=== PATIENT | male | born 1995 | race Caucasian/White ===

== ENCOUNTER 2019-07-20 14:55 | Emergency (ER) | payer OTHER, SELFPAY ==
[2019-07-20 15:01] VITALS: BP 140/83; PULSE 109; RESP 20; O2SAT 100
--- NOTE | 2019-07-20 15:03 | DI.RAD.S_ITS ---
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 COMPARISON: None. FINDINGS: Bones: Small tuft fracture of the fourth distal phalanx. Soft tissues: No suspicious soft tissue calcifications. IMPRESSION: Small fourth distal phalanx tuft fracture. Dictated by: Marci Pace M.D. on 07/20/2019 at 15:35 Approved by: Marci Pace M.D. on 07/20/2019 at 15:36
[2019-07-20] MEDS: BACITRACIN OINT 0.9 GM PCKT 1 APPLIC TOP (15:58)
[2019-07-20] MEDS: LIDO 1%/SOD BICARB 8.4% (10ML) 10 ML SYRINGE INJ (15:59)
[2019-07-20] MEDS: TET,DIPH,PERTUSS(ACELL),VAC/PF 0.5 ML SYRINGE IM (15:59)
[2019-07-20] MEDS: CEFAZOLIN 2 GM/100 ML FROZ.PIGGY IV (16:10)
--- NOTE | 2019-07-20 17:38 | ED_ITS ---
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 There are 2 lacerations in L 4th distal phalanx. Vertical linear laceration through vertically middle of anterior and posterior aspect including the nail. The 2nd smaller laceration radial aspect near the nail. The injuries had occurred at work. Right dominant hand and patient is not sure last tetanus vaccination date. Patient reports he can move his fingers and slow bleeding from the site is controlled with pressure dressing. Related Data Home Medications Medication Instructions Recorded Confirmed No Known Home Medications 07/20/19 07/20/19 Previous Rx's Medication Instructions Recorded cephalexin [Keflex] 500 mg PO Q6H 7 Days #28 cap 07/20/19 Allergies Allergy/AdvReac Type Severity Reaction Status Date / Time No Known Drug Allergies Allergy Verified 07/20/19 15:02 Review of Systems <THOM Becerra - Last Filed: 07/20/19 23:59> Review of Systems ROS Unobtainable: All systems reviewed & are unremarkable except as noted in HPI and below PFSH <THOM Becerra - Last Filed: 07/20/19 23:59> Medical History No significant past medical history (Acute) No significant past surgical history (Acute) Social History Smoking Status: Never smoker Social History Smoking Status: Never smoker Exam <THOM Becerra - Last Filed: 07/20/19 23:59> Narrative Exam Narrative: General appearance: well developed, well nourished, in no acute distress. Head: normocephalic, atraumatic, no scalp lesions, non-tender. Eye: pupil equal, round. EOMI. Nose: nares patent. Oral: mucosa moist. Neck/Thyroid: neck supple, full range of motion, no visible masses. Skin: Two laceration on L 4th distal phalanx. One with 2.5 cm, vertical in the middle of phalanx in dorsum and dumont aspect through nail. The other, 1cn near radially adjacent to nail. No suspicious rashes, lesions over visible areas. Warm and dry. Heart: no clubbing, no cyanosis, no edema. Lungs: Breathing even and unlabored. No stridor. No accessory muscles used. Chest: normal shape and expansion. Abdomen: non-obese, non-distended. Neurologic: alert and oriented. Cognitive exam, PAINTER ROUGH and PNS grossly intact on informal exam. Psych: good eye contact, normal affect. Initial Vital Signs Initial Vital Signs: Vital Signs Pulse Rate 109 H 07/20/19 15:01 Respiratory Rate 20 07/20/19 15:01 Blood Pressure 140/83 07/20/19 15:01 Pulse Oximetry 100 07/20/19 15:01 <Gisela Garcia MD - Last Filed: 07/23/19 07:11> Initial Vital Signs Initial Vital Signs: Vital Signs Pulse Rate 109 H 07/20/19 15:01 Respiratory Rate 20 07/20/19 15:01 Blood Pressure 140/83 07/20/19 15:01 Pulse Oximetry 100 07/20/19 15:01 Procedures <THOM Becerra - Last Filed: 07/20/19 23:59> Laceration Repair Laceration 1: Site: hand (4th distal phalanx, vertical through dorsum and dumont aspect ) Side (If applicable): left Size (cm): 2.5 Description: linear and clean Depth: simple, single layer Local Anesthetic: lidocaine 1% and with bicarb Amount of anesthesia used (mL): 2 (Digital block) Pre-repair: wound explored and irrigated extensively Skin layer closed with: nylon Size (cm): 4-0 Number of sutures: 5 Technique: simple, interrupted Size: 4-0 Laceration 2: Site: hand (4th distal phalanx, radial aspect side near nail) Side (If applicable): left Size (cm): 1 Description: flap Depth: simple, single layer Local Anesthetic: lidocaine 1% and with epi Pre-repair: wound explored and irrigated extensively Skin layer closed with: nylon Size (cm): 4-0 Number of sutures: 4 Technique: simple, interrupted Course <THOM Becerra - Last Filed: 07/20/19 23:59> Orders Ordered: Discontinued Medications Bacitracin (Bacitracin) 1 applic TOP NOW ONE Stop: 07/20/19 15:51 Last Admin: 07/20/19 15:58 Dose: 1 applic Documented by: HENRI Diphtheria/Tetanus/Acell Pertussis (Adacel) 0.5 ml IM .ONCE ONE Stop: 07/20/19 15:51 Last Admin: 07/20/19 15:59 Dose: 0.5 ml Documented by: HENRI Cefazolin Sodium/Dextrose (Ancef) 2 gm in 100 mls @ 200 mls/hr IV NOW ONE Stop: 07/20/19 16:19 Last Infusion: 07/20/19 17:20 Dose: 0 mls/hr Documented by: Admin: 07/20/19 16:10 Dose: 200 mls/hr Documented by: HENRI Lidocaine/Sodium Bicarbonate (Buffered Lidocaine 10 Ml Syr) 10 ml INJ NOW ONE Stop: 07/20/19 15:51 Last Admin: 07/20/19 15:59 Dose: 10 ml Documented by: HENRI Vital Signs - 8 hr 07/20/19 18:00 Pulse Rate 77 Respiratory Rate 18 Blood Pressure 140/73 Pulse Oximetry 95 <Gisela Garcia MD - Last Filed: 07/23/19 07:11> Orders Ordered: Discontinued Medications Bacitracin (Bacitracin) 1 applic TOP NOW ONE Stop: 07/20/19 15:51 Last Admin: 07/20/19 15:58 Dose: 1 applic Documented by: HENRI Diphtheria/Tetanus/Acell Pertussis (Adacel) 0.5 ml IM .ONCE ONE Stop: 07/20/19 15:51 Last Admin: 07/20/19 15:59 Dose: 0.5 ml Documented by: HENRI Cefazolin Sodium/Dextrose (Ancef) 2 gm in 100 mls @ 200 mls/hr IV NOW ONE Stop: 07/20/19 16:19 Last Infusion: 07/20/19 17:20 Dose: 0 mls/hr Documented by: Admin: 07/20/19 16:10 Dose: 200 mls/hr Documented by: HENRI Lidocaine/Sodium Bicarbonate (Buffered Lidocaine 10 Ml Syr) 10 ml INJ NOW ONE Stop: 07/20/19 15:51 Last Admin: 07/20/19 15:59 Dose: 10 ml Documented by: HENRI Vital Signs - 8 hr 07/20/19 18:00 Pulse Rate 77 Respiratory Rate 18 Blood Pressure 140/73 Pulse Oximetry 95 MDM - Wound/Laceration <Jose Flores-THOM Jolly - Last Filed: 07/20/19 23:59> Differential Diagnosis Differential diagnosis: Likely laceration and other (open fracture of finger, nail laceration) Medical Records Attestation: I reviewed the patient's medical records. 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 COMPARISON: None. FINDINGS: Bones: Small tuft fracture of the fourth distal phalanx. Soft tissues: No suspicious soft tissue calcifications. IMPRESSION: Small fourth distal phalanx tuft fracture. Dictated by: Marci Pace M.D. on 07/20/2019 at 15:35 Approved by: Marci Pace M.D. on 07/20/2019 at 15:36 [facility] Narrative Medical decision making narrative: The patient sustained a small 4th distal phalanx tuft fracture with vertical laceration through dorsum and dumont aspect of mid 4th distal phalanx and smaller laceration near radial side of nail. The patient was provided with IV antibiotic medications cefazolin 2 g and the laceration was repaired, please see procedural note. Patient tolerated the procedure well. We discussed in length of signs and symptoms for infection to monitor, home wound care/splint use. The wound was dressed after the bacitracin with bulky dressing for next 24 hours. Patient advised to use aluminum finger splint after then. Patient advised to follow with orthopedist. Patient does not have primary care physician at this time and [facility] resources contact phone number has provided. Patient discharged to home with oral antibiotic medication to complete. Return precautions discussed with patient and patient agrees with treatment plan. No further questions were expressed at this time. L&I documentation has completed. Discharge Plan Departure Patient Disposition: Home Clinical Impression: Laceration Finger fracture, left Qualifiers: Encounter type: initial encounter Finger: ring finger Fracture type: open Phalanx: distal Fracture alignment: nondisplaced Qualified Code(s): S62.665B - Nondisplaced fracture of distal phalanx of left ring finger, initial encounter for open fracture Discharge Date/Time: 07/20/19 18:00 Instructions: DI for Laceration Repair, DI for Finger Fracture Activity Restrictions/Additional Instructions: You have been diagnosed with [open fracture and laceration to left ring finger. According to the x-ray test there is a small 4th distal phalanx tuft fracture. You're laceration was repaired with sutures. We have received IV antibiotic medication today in ED. Please keep bulky dressing intact next 24 hours. After then, you could use metal finger splint that we are providing it to you to splint the area after the light dressing]. What to do: Please do not get your wound soaked in the water until suture removal. Keep your dressing intact for next 24 hrs. After then, you could remove your dressing, wash with soap and water. Pat dry with clean papertowel and dress it with antibiotic ointment. You can change dressing as needed and daily. Please monitor for signs and symptoms for infection such as increasing redness, sw elling, warmth, pain, fever, purulent discharge. If this occurs, please return to ED or follow up with your primary care physician since your wound may be gotten infected. Please follow up with your primary care provider in 2-3 days for recheck wound. Your suture should be removed [ 7-10 ] days. This can be done by your primary provider, walk-in clinic or here in ED. Please keep your wound clean, dry and intact all times. *Take your medications as directed. You to take [id number] Tylenol and/or Motrin as needed for discomfort. *Follow up with your primary care provider in 2-3 days, call for an appointment. Let them know you were seen in the ED and that we asked you to be seen in follow up. Prescriptions: New cephalexin [Keflex] 500 mg capsule 500 mg PO Q6H 7 Days Qty: 28 RF: 0 No Action No Known Home Medications RF: 0 Referrals: [facility] [Outside] (Walk in clinic) [facility] [Outside] [facility] [Outside]
[2019-07-20 18:00] VITALS: BP 140/73; PULSE 77; RESP 18; O2SAT 95
== END 2019-07-20 18:00 | disposition home or self-care (01) ==
PROVIDERS: Emergency Provider Nurse Practitioner Family
DX: S62.665B Nondisplaced fracture of distal phalanx of left ring finger, initial encounter for open fracture (principal); Z23 Encounter for immunization; Y99.0 Civilian activity done for income or pay
CPT/HCPCS: 12002; 73140; 90471; 96365; 99284; 99285; 90715; J0690

== ENCOUNTER 2022-06-15 08:44 | Emergency (ER) | payer SELFPAY ==
[2022-06-15] VITALS (7 sets, daily range): BP systolic 123–149; BP diastolic 76–93; PULSE 72–105; RESP 12–16; TEMP 36.9; O2SAT 96–99; BMI 28.0
--- NOTE | 2022-06-15 08:59 | DI.RAD.S_ITS ---
PROCEDURE: XR CHEST 1V INDICATIONS: Chest pain TECHNIQUE: One view of the chest was acquired. COMPARISON: None. FINDINGS: Surgical changes and devices: None. Lungs and pleura: Lungs are clear. No pleural effusions or pneumothorax. Mediastinum: Mediastinal contours appear normal. Heart size is normal. Bones and chest wall: No suspicious bony lesions. Overlying soft tissues appear unremarkable. IMPRESSION: No acute cardiopulmonary process demonstrated radiographically. Dictated by: Ac Sandoval M.D. on 06/15/2022 at 9:19 Approved by: Ac Sandoval M.D. on 06/15/2022 at 9:19
--- NOTE | 2022-06-15 09:00 | ED_ITS ---
HPI - Chest Pain General Chief Complaint: Chest Pain Stated Complaint: chest pain heart palpitations Time Seen by Provider: 06/15/22 08:50 Source: patient Mode of arrival: Ambulatory Limitations: no limitations History of Present Illness HPI narrative: This 26-year-old young man drinks about a six-pack of beer daily and has not had any for about 48 hours now. He woke up this morning with some tightness in his upper chest and a feeling as if his heart is beating with great force but not particularly fast. He denies any recent illness with fever, cough, nausea, vomiting, diarrhea or other URI symptoms. He denies any other medical condition. He says he has never taken a prescription medication nor has he ever had surgery or hospitalization. He says he has felt a little bit like this before when discontinuing drinking but never with the chest pressure. Related Data Previous Rx's Medication Instructions Recorded acamprosate 333 mg tablet,delayed 666 mg PO Q8H #30 tabs 06/15/22 release chlordiazepoxide HCl 25 mg capsule 25 mg PO BID #6 caps 06/15/22 Allergies Allergy/AdvReac Type Severity Reaction Status Date / Time No Known Drug Allergies Allergy Verified 06/15/22 08:56 Review of Systems Review of Systems Narrative: Complete review of systems is negative other than as noted above Patient History Medical History (Updated 06/15/22 @ 11:11 by Tano Brown MD) No significant past medical history Surgical History No significant past surgical history Social History Smoking Status: Never smoker Smoking Status: Never smoker alcohol intake frequency: 3 or more drinks per day Exam Narrative Exam Narrative: GENERAL: Alert, cooperative and in no distress. HEAD: Atraumatic. Normocephalic. EYES: Sclera are clear without icterus. Extraocular movements are full. ENT: No rhinorrhea. Oropharynx is moist. Mouth exam is benign. NECK: Supple. Full range of motion. CARDIOVASCULAR: Normal rate and rhythm without murmur gallop or rub. RESPIRATORY: Clear to auscultation. Breath sounds equal bilaterally. No wheezes, rales, or rhonchi. GASTROINTESTINAL: Abdomen soft, non-tender, nondistended. EXTREMITIES: No edema, full range of motion. No obvious trauma. BACK: Normal inspection, no CVA tenderness. NEURO: Nonfocal examination, normal speech, normal gait. SKIN: No rash or erythema of visible areas PSYCH: Normally oriented. Normal range of affect. Appropriate behavior Initial Vital Signs Initial Vital Signs: Vital Signs Temperature 98.5 F 06/15/22 08:50 Pulse Rate 94 H 06/15/22 08:50 Respiratory Rate 15 06/15/22 08:50 Blood Pressure 149/92 H 06/15/22 08:50 Pulse Oximetry 99 06/15/22 08:50 Oxygen Delivery Method 06/15/22 08:50 Course Orders Ordered: ED Orders 06/15/22 08:59 XR chest 1V Stat EKG-12 Lead Stat 06/15/22 09:06 Complete Blood Count AUTO DIFF Stat Comprehensive Metabolic Panel Stat Lipase Stat Magnesium Stat Troponin & CK Cardiac Panel Stat Discontinued Medications Sodium Chloride (Normal Saline 0.9%) 1,000 mls @ 1,000 mls/hr IV BOLUS ONE Stop: 06/15/22 09:59 Last Admin: 06/15/22 09:16 Dose: 1,000 mls/hr Documented By: CATHY Lorazepam (Lorazepam 1 Mg Tablet) 1 mg PO NOW ONE Stop: 06/15/22 09:01 Last Admin: 06/15/22 09:15 Dose: 1 mg Documented By: CATHY Reevaluation(s) Reevaluation #1: 1103, patient says he is feeling dramatically improved. Chest symptoms have resolved. Vital Signs Vital signs: Vital Signs - 8 hr 06/15/22 08:50 Temperature 98.5 F Pulse Rate 94 H Respiratory Rate 15 Blood Pressure 149/92 H Pulse Oximetry 99 Oxygen Delivery Method Room Air MDM - Chest Pain Medical Records Data Medical records narrative: Feels well now. I think this is all attributable to alcohol withdrawal. I do not suspect an acute pulmonary or cardiac condition though his EKG is mildly abnormal. I will recommend outpatient follow-up for this. We had a lengthy discussion about addiction disease. I recommend acamprosate along with acute Librium for withdrawal over the next couple of days. Lab Data Result diagrams: 06/15/22 09:06 06/15/22 09:06 Labs: Lab Results 07/22/22 07/22/22 07/22/22 Range/Units 09:06 09:06 09:06 WBC 8.0 Cancelled (4.5-11.0) X10^3/uL RBC 4.82 Cancelled (4.5-5.9) X10^6/uL Hgb 15.8 Cancelled (13.5-17.5) g/dL Hct 44.3 Cancelled (41-53) % MCV 91.9 Cancelled (80-100) fL MCH 32.9 Cancelled (26-34) PG MCHC 35.8 Cancelled (30-36) % RDW 12.8 Cancelled (11.6-14.8) % Plt Count 185 Cancelled (150-400) X10^3/uL Neut % (Auto) 81.8 H Cancelled (50-75) % Lymph % (Auto) 10.1 L Cancelled (25-40) % [place] % (Auto) 7.4 Cancelled (3-14) % Eos % (Auto) 0.2 L Cancelled (2-4) % Baso % (Auto) 0.5 Cancelled (0-2) % Neut # (Auto) 6500 Cancelled (4724-9531) /uL Lymph # (Auto) 800 L Cancelled (8564-2728) /uL [place] # (Auto) 600 Cancelled (0-900) /uL Eos # (Auto) 0 Cancelled (0-450) /uL Baso # (Auto) 0 Cancelled (0-100) /uL RBC Morphology See below Sodium 136 L (137-145) mmol/L Potassium 3.5 (3.4-5.1) mmol/L Chloride 102 (98-107) mmol/L Carbon Dioxide 23 (22-32) mmol/L BUN 9 (9-20) mg/dL Creatinine 0.99 (0.66-1.25) mg/dL Estimated GFR > 60 (>60) mL/min BUN/Creatinine Ratio 9.1 (6-22) Glucose 136 H (70-100) mg/dL Calcium 9.4 (8.4-10.2) mg/dL Magnesium 1.9 (1.6-2.3) mg/dL Total Bilirubin 0.9 (0.2-1.3) mg/dL AST 27 (17-59) IU/L ALT 25 (<50) IU/L Alkaline Phosphatase 44 (38-126) U/L Total Creatine Kinase 66 (55-170) U/L CK-MB (CK-2) TNP CK-MB (CK-2) Rel Index TNP Troponin I < 0.012 (0.01-0.034) ng/mL Total Protein 8.0 (6.3-8.2) g/dL Albumin 5.2 H (3.5-5.0) g/dL Globulin 2.8 (1.7-4.1) g/dL Albumin/Globulin Ratio 1.9 (1.0-2.8) Lipase 50 (23-300) U/L 06/15/22 Range/Units 09:06 WBC (4.5-11.0) X10^3/uL RBC (4.5-5.9) X10^6/uL Hgb (13.5-17.5) g/dL Hct (41-53) % MCV (80-100) fL MCH (26-34) PG MCHC (30-36) % RDW (11.6-14.8) % Plt Count (150-400) X10^3/uL Neut % (Auto) (50-75) % Lymph % (Auto) (25-40) % [place] % (Auto) (3-14) % Eos % (Auto) (2-4) % Baso % (Auto) (0-2) % Neut # (Auto) (5907-1383) /uL Lymph # (Auto) (0898-4402) /uL [place] # (Auto) (0-900) /uL Eos # (Auto) (0-450) /uL Baso # (Auto) (0-100) /uL RBC Morphology Sodium Cancelled (137-145) mmol/L Potassium Cancelled (3.4-5.1) mmol/L Chloride Cancelled (98-107) mmol/L Carbon Dioxide Cancelled (22-32) mmol/L BUN Cancelled (9-20) mg/dL Creatinine Cancelled (0.66-1.25) mg/dL Estimated GFR Cancelled (>60) mL/min BUN/Creatinine Ratio Cancelled (6-22) Glucose Cancelled (70-100) mg/dL Calcium Cancelled (8.4-10.2) mg/dL Magnesium (1.6-2.3) mg/dL Total Bilirubin Cancelled (0.2-1.3) mg/dL AST Cancelled (17-59) IU/L ALT Cancelled (<50) IU/L Alkaline Phosphatase Cancelled (38-126) U/L Total Creatine Kinase Cancelled (55-170) U/L CK-MB (CK-2) Cancelled CK-MB (CK-2) Rel Index Cancelled Troponin I Cancelled (0.01-0.034) ng/mL Total Protein Cancelled (6.3-8.2) g/dL Albumin Cancelled (3.5-5.0) g/dL Globulin Cancelled (1.7-4.1) g/dL Albumin/Globulin Ratio Cancelled (1.0-2.8) Lipase (23-300) U/L Imaging Data Chest x-ray: Radiologist's Impression: IMPRESSION:? No acute cardiopulmonary process demonstrated radiographically. ? ? Dictated by: Ac Sandoval M.D. on 06/15/2022 at 9:19 ? ? Approved by: Ac Sandoval M.D. on 06/15/2022 at 9:19 ? ECG Data Interpretation: EKG obtained at 9:00 a.m. shows sinus rhythm with no acute ST or T-wave changes. Discharge Plan Departure Patient Disposition: Home Clinical Impression: Alcohol withdrawal, Chest pain Instructions: Drug and Alcohol Withdrawal Activity Restrictions/Additional Instructions: I think her symptoms are attributable to alcohol withdrawal. I think it is great the you have recognized that this is a problem for you and that you should be doing something about it. I recommend that you call [facility] to schedule a follow-up appointment next week. Phone #[phone]. For now recommend delivery in 25 mg 3 times a day today and then 2 times a day on Saturday and then we in the evening on Saturday 1 dose. Do not combine it chlordiazepoxide (Librium) with alcohol this could be life-threatening. Additionally, starting Saturday I recommended acamprosate 3 times a day. Return to the ER if you have new or worsening chest pain. Prescriptions: New chlordiazepoxide HCl 25 mg capsule 25 mg PO BID Qty: 6 0RF Rx Instructions: Take 1 tablet every 8 hours for 3 doses then to 1 tablet every 12 hours for 2 doses then 1 tablet acamprosate 333 mg tablet,delayed release (DR/EC) 666 mg PO Q8H Qty: 30 0RF Rx Instructions: Start after 5 days of alcohol abstinence
[2022-06-15] MEDS: LORazepam 1 MG TABLET PO (09:15)
[2022-06-15] MEDS: SODIUM CHLORIDE 0.9% 1,000 ML 1000 ML IV (09:16)
[2022-06-15 09:34] LABS: Alanine Aminotransferase 25 IU/L (<50); Albumin 5.2 g/dL (3.5-5.0); Albumin Globulin Ratio 1.9 (1.0-2.8); Alkaline Phosphatase 44 U/L (38-126); Aspartate Aminotransferase 27 IU/L (17-59); BUN Creatinine Ratio 9.1 (6-22); Bilirubin Total 0.9 mg/dL (0.2-1.3); Blood Urea Nitrogen 9 mg/dL (9-20); Calcium 9.4 mg/dL (8.4-10.2); Carbon Dioxide 23 mmol/L (22-32); Chloride 102 mmol/L (98-107); Creatine Kinase 66 U/L (55-170); Estimated Glomerular Filt Rate > 60 mL/min (>60); Globulin 2.8 g/dL (1.7-4.1); Glucose 136 mg/dL (70-100); HEMOLYSIS < 15 (0-50); Lipase 50 U/L (23-300); Magnesium 1.9 mg/dL (1.6-2.3); Potassium 3.5 mmol/L (3.4-5.1); Sodium 136 mmol/L (137-145)
[2022-06-15 09:44] LABS: Basophils Absolute Auto 0 /uL (0-100); Basophils Percent Auto 0.5 % (0-2); Eosinophils Absolute Auto 0 /uL (0-450); Eosinophils Percent Auto 0.2 % (2-4); Hematocrit 44.3 % (41-53); Hemoglobin 15.8 g/dL (13.5-17.5); Lymphocytes Absolute Auto 800 /uL (1100-4500); Lymphocytes Percent Auto 10.1 % (25-40); Mean Corpuscular HGB Conc 35.8 % (30-36); Mean Corpuscular Hemoglobin 32.9 PG (26-34); Mean Corpuscular Volume 91.9 fL (80-100); Monocytes Absolute Auto 600 /uL (0-900); Monocytes Percent Auto 7.4 % (3-14); Neutrophils Absolute Auto 6500 /uL (1500-7000); Neutrophils Percent Auto 81.8 % (50-75); Platelet Count 185 X10^3/uL (150-400); Red Blood Cell Count 4.82 X10^6/uL (4.5-5.9); Red Cell Distribution Width 12.8 % (11.6-14.8)
[2022-06-15 09:45] LABS: Troponin I < 0.012 ng/mL (0.01-0.034)
[2022-06-15 10:10] LABS: Add Manual Diff / Slide Review SLIDE REVIEW
--- NOTE | 2022-06-15 10:51 | PC.NURSE ---
Pt feeling better after receiving the Ativan
== END 2022-06-15 11:25 | disposition home or self-care (01) ==
PROVIDERS: Emergency Provider Family Medicine Addiction Medicine
DX: F10.139 Alcohol abuse with withdrawal, unspecified (principal); R07.9 Chest pain, unspecified
CPT/HCPCS: 36415; 71045; 80053; 82550; 83690; 83735; 84484; 85025; 93005; 93010; 96360; 96361; 99284

== ENCOUNTER 2022-08-06 08:21 | Emergency (ER) | payer SELFPAY ==
[2022-08-06] VITALS (8 sets, daily range): BP systolic 128–162; BP diastolic 71–91; PULSE 76–108; RESP 11–20; TEMP 37.1; O2SAT 97–100; BMI 26.7
--- NOTE | 2022-08-06 08:23 | DI.RAD.S_ITS ---
PROCEDURE: XR CHEST 1V INDICATIONS: chest pain TECHNIQUE: One view of the chest was acquired. COMPARISON: [facility], CR, XR CHEST 1V, 06/15/2022, 9:05. FINDINGS: Surgical changes and devices: None. Lungs and pleura: Lungs are clear. No pleural effusions or pneumothorax. Mediastinum: Mediastinal contours appear normal. Heart size is normal. Bones and chest wall: No suspicious bony lesions. Overlying soft tissues appear unremarkable. IMPRESSION: No acute process. Dictated by: Albino Mendoza M.D. on 08/06/2022 at 8:51 Approved by: Albino Mendoza M.D. on 08/06/2022 at 8:52
[2022-08-06 09:03] LABS: Add Manual Diff / Slide Review NO; Basophils Absolute Auto 0 /uL (0-100); Basophils Percent Auto 0.4 % (0-2); Eosinophils Absolute Auto 100 /uL (0-450); Eosinophils Percent Auto 0.8 % (2-4); Hematocrit 45.6 % (41-53); Hemoglobin 16.3 g/dL (13.5-17.5); Lymphocytes Absolute Auto 1600 /uL (1100-4500); Lymphocytes Percent Auto 20.6 % (25-40); Mean Corpuscular HGB Conc 35.8 % (30-36); Mean Corpuscular Hemoglobin 32.3 PG (26-34); Mean Corpuscular Volume 90.2 fL (80-100); Monocytes Absolute Auto 600 /uL (0-900); Monocytes Percent Auto 7.4 % (3-14); Neutrophils Absolute Auto 5500 /uL (1500-7000); Neutrophils Percent Auto 70.8 % (50-75); Platelet Count 222 X10^3/uL (150-400); Red Blood Cell Count 5.06 X10^6/uL (4.5-5.9); Red Cell Distribution Width 12.6 % (11.6-14.8); White Blood Cell Count 7.8 X10^3/uL (4.5-11.0)
[2022-08-06 09:05] LABS: Alanine Aminotransferase 34 IU/L (<50); Albumin 5.3 g/dL (3.5-5.0); Albumin Globulin Ratio 1.3 (1.0-2.8); Alkaline Phosphatase 50 U/L (38-126); Aspartate Aminotransferase 21 IU/L (17-59); Bilirubin Total 1.1 mg/dL (0.2-1.3); Blood Urea Nitrogen 13 mg/dL (9-20); Calcium 9.6 mg/dL (8.4-10.2); Carbon Dioxide 24 mmol/L (22-32); Chloride 100 mmol/L (98-107); Creatine Kinase 34 U/L (55-170); Estimated Glomerular Filt Rate > 60 mL/min (>60); Glucose 115 mg/dL (70-100); HEMOLYSIS < 15 (0-50); Lipase 49 U/L (23-300); Magnesium 1.9 mg/dL (1.6-2.3); Potassium 3.5 mmol/L (3.4-5.1); Sodium 141 mmol/L (137-145); Total Protein 9.3 g/dL (6.3-8.2)
[2022-08-06 09:15] LABS: Troponin I < 0.012 ng/mL (0.01-0.034)
--- NOTE | 2022-08-06 09:39 | ED_ITS ---
HPI - Chest Pain General Chief Complaint: Chest Pain Stated Complaint: elevated heart rate 3 days dull chest pain Time Seen by Provider: 08/06/22 09:39 Source: patient Mode of arrival: Family Vehicle Limitations: no limitations History of Present Illness HPI narrative: This is a 26-year-old male with history of insomnia and alcohol abuse who has been sober for approximately 3 months months. Patient states for the past 3 days he is noticed heart rate has been fast intermittently, he is had some issues with sleep which he states is longstanding. Last night he was up had substernal chest discomfort that has been a little bit to the left side. He is felt a little dizzy he felt like his heart rate was a little fast. Denies any radiation of chest pain, no syncope. No shortness of breath, no diaphoresis [place] his feet and palms felt cold and sweaty. No nausea or vomiting last 24 hours but had some vomiting 2 days ago. No cold, cough or congestive symptoms. Patient states no swelling in his extremities. He states heart rate will feel little bit fast he checked his pulse he got mostly 100s but occasional 140s. He denies any other past medical issues. Denies any surgeries. No known drug allergies. He uses nicotine in a pouch form, quit drinking alcohol 3 months ago. Patient states feels a little bit similar when he was going through withdrawal from alcohol but states he has been alcohol free. Patient states uses marijuana maybe once a week but not persistently denies any other IV drugs. Notes dad had cardiac issues starting in his 50s he is not entirely sure but states he is had open heart surgery, pacemaker and has atrial fibrillation. States status now 69. He is 2 sisters which he states are healthy. Does not currently have a primary care physician. He notes that he did have a sleep study when he was younger for insomnia and has tried multiple medications for his insomnia [id number] and prescription in the past. No other known embolic or pulmonary history in his family. Related Data Previous Rx's Medication Instructions Recorded acamprosate 333 mg tablet,delayed 666 mg PO Q8H #30 tabs 06/15/22 release chlordiazepoxide HCl 25 mg capsule 25 mg PO BID #6 caps 06/15/22 Allergies Allergy/AdvReac Type Severity Reaction Status Date / Time No Known Drug Allergies Allergy Verified 06/15/22 08:56 Review of Systems Review of Systems ROS Unobtainable: All systems reviewed & are unremarkable except as noted in HPI and below Patient History Medical History (Updated 08/06/22 @ 09:58 by Blanca Tejeda DO) No significant past medical history Surgical History No significant past surgical history Social History Smoking Status: Never smoker Smoking Status: Never smoker alcohol intake frequency: a few times a week Substance Use Type: does not use Exam Narrative Exam Narrative: GENERAL: Alert and oriented x three, male in mild distress. No diaphoresis. HEENT: Head normocephalic, atraumatic, EOMI, pupils reactive, face symmetric, m oist mucous membranes NECK: Supple, full range of motion CARDIOVASCULAR: Regular rate and rhythm without murmurs, rubs or gallops. No JVD no swelling bilateral lower extremities. RESPIRATORY: Breath sounds equal bilaterally, no wheezes rales or rhonchi. ABDOMEN: Soft, nontender. Normoactive bowel sounds all 4 quadrants. No guarding or rebound, rigidity, no mass, no pulsatile mass or bruit. : No CVA tenderness EXTREMITIES: Normal range of motion, no clubbing or edema. Neurovascularly intact NEUROLOGICAL: Cranial nerves II through XII grossly intact. Moving all extremities SKIN: Warm, dry, no petechiae, no rashes or lesions. Initial Vital Signs Initial Vital Signs: Vital Signs Pulse Rate 108 H 08/06/22 08:28 Respiratory Rate 15 08/06/22 08:28 Pulse Oximetry 100 08/06/22 08:28 Scores HEART Score Heart Score history: Slightly Suspicious Heart Score EKG: Normal Heart Score Age: < 45 years old Heart Score risk factors: 1-2 risk factors Heart Score troponin: < or = to normal limit Heart Score Total: 1 PERC Score Age greater than or equal to 50 years: No Heart rate greater than or equal to 100 bpm: Yes Room Air O2 Sat less than 95%: No Unilateral leg swelling: No Recent trauma or surgery: No Hemoptysis: No Prior PE or DVT: No Hormone Use: No Total PERC Score: 1 Course Orders Ordered: ED Orders 08/06/22 08:23 XR chest 1V Stat EKG-12 Lead Stat 08/06/22 08:24 D Dimer Stat 08/06/22 08:34 Complete Blood Count AUTO DIFF Stat Comprehensive Metabolic Panel Stat Lipase Stat Magnesium Stat Troponin & CK Cardiac Panel Stat 08/06/22 09:39 Trop I [Troponin I] Stat 08/06/22 10:20 COVID19 -Nasal RAPID/Pre-Proc Stat 08/06/22 10:30 Trop I [Troponin I] Stat 08/06/22 10:38 EKG-12 Lead Routine Vital Signs Vital signs: Vital Signs - 8 hr 08/06/22 08:41 08/06/22 08:28 08/06/22 08:30 Temperature 98.8 F Pulse Rate 99 H 108 H Respiratory Rate 20 15 Blood Pressure 162/91 H 162/90 H Pulse Oximetry 100 100 Oxygen Delivery Method Room Air 08/06/22 08:30 08/06/22 09:00 08/06/22 09:02 Temperature Pulse Rate 99 H 87 Respiratory Rate 14 11 L Blood Pressure 133/81 Pulse Oximetry 98 Oxygen Delivery Method 08/06/22 09:02 08/06/22 09:30 08/06/22 10:00 Temperature Pulse Rate 82 83 76 Respiratory Rate 12 16 16 Blood Pressure 131/72 128/71 Pulse Oximetry 97 99 97 Oxygen Delivery Method Room Air Room Air MDM - Chest Pain Lab Data Result diagrams: 08/06/22 08:34 08/06/22 08:34 Labs: Lab Results 08/06/22 08/06/22 08/06/22 Range/Units 08:24 08:34 08:34 WBC 7.8 (4.5-11.0) X10^3/uL RBC 5.06 (4.5-5.9) X10^6/uL Hgb 16.3 (13.5-17.5) g/dL Hct 45.6 (41-53) % MCV 90.2 (80-100) fL MCH 32.3 (26-34) PG MCHC 35.8 (30-36) % RDW 12.6 (11.6-14.8) % Plt Count 222 (150-400) X10^3/uL Neut % (Auto) 70.8 (50-75) % Lymph % (Auto) 20.6 L (25-40) % [place] % (Auto) 7.4 (3-14) % Eos % (Auto) 0.8 L (2-4) % Baso % (Auto) 0.4 (0-2) % Neut # (Auto) 5500 (1136-6109) /uL Lymph # (Auto) 1600 (6315-5970) /uL [place] # (Auto) 600 (0-900) /uL Eos # (Auto) 100 (0-450) /uL Baso # (Auto) 0 (0-100) /uL D-Dimer < 215 (<500) ng/ml Sodium 141 (137-145) mmol/L Potassium 3.5 (3.4-5.1) mmol/L Chloride 100 (98-107) mmol/L Carbon Dioxide 24 (22-32) mmol/L BUN 13 (9-20) mg/dL Creatinine 1.00 (0.66-1.25) mg/dL Estimated GFR > 60 (>60) mL/min BUN/Creatinine Ratio 13.0 (6-22) Glucose 115 H (70-100) mg/dL Calcium 9.6 (8.4-10.2) mg/dL Magnesium 1.9 (1.6-2.3) mg/dL Total Bilirubin 1.1 (0.2-1.3) mg/dL AST 21 (17-59) IU/L ALT 34 (<50) IU/L Alkaline Phosphatase 50 (38-126) U/L Total Creatine Kinase 34 L (55-170) U/L CK-MB (CK-2) TNP CK-MB (CK-2) Rel Index TNP Troponin I < 0.012 (0.01-0.034) ng/mL Total Protein 9.3 H (6.3-8.2) g/dL Albumin 5.3 H (3.5-5.0) g/dL Globulin 4.0 (1.7-4.1) g/dL Albumin/Globulin Ratio 1.3 (1.0-2.8) Lipase 49 (23-300) U/L SARS-CoV-2 (PCR) (Negative) 08/06/22 08/06/22 Range/Units 10:20 10:30 WBC (4.5-11.0) X10^3/uL RBC (4.5-5.9) X10^6/uL Hgb (13.5-17.5) g/dL Hct (41-53) % MCV (80-100) fL MCH (26-34) PG MCHC (30-36) % RDW (11.6-14.8) % Plt Count (150-400) X10^3/uL Neut % (Auto) (50-75) % Lymph % (Auto) (25-40) % [place] % (Auto) (3-14) % Eos % (Auto) (2-4) % Baso % (Auto) (0-2) % Neut # (Auto) (4037-3747) /uL Lymph # (Auto) (6771-7383) /uL [place] # (Auto) (0-900) /uL Eos # (Auto) (0-450) /uL Baso # (Auto) (0-100) /uL D-Dimer (<500) ng/ml Sodium (137-145) mmol/L Potassium (3.4-5.1) mmol/L Chloride (98-107) mmol/L Carbon Dioxide (22-32) mmol/L BUN (9-20) mg/dL Creatinine (0.66-1.25) mg/dL Estimated GFR (>60) mL/min BUN/Creatinine Ratio (6-22) Glucose (70-100) mg/dL Calcium (8.4-10.2) mg/dL Magnesium (1.6-2.3) mg/dL Total Bilirubin (0.2-1.3) mg/dL AST (17-59) IU/L ALT (<50) IU/L Alkaline Phosphatase (38-126) U/L Total Creatine Kinase (55-170) U/L CK-MB (CK-2) CK-MB (CK-2) Rel Index Troponin I < 0.012 (0.01-0.034) ng/mL Total Protein (6.3-8.2) g/dL Albumin (3.5-5.0) g/dL Globulin (1.7-4.1) g/dL Albumin/Globulin Ratio (1.0-2.8) Lipase (23-300) U/L SARS-CoV-2 (PCR) Negative (Negative) Imaging Data Chest x-ray: Radiologist's Impression: [address] [address] XRay Report Signed Patient: RubinJin le MR#: [id number] : 1995 Acct:[id number] Age/Sex: 26 / M Date of Service: 08/06/22 Loc: ED Accession Number: [id number] ?? Procedure: XR chest 1V Ordering Provider: Blanca Tejeda D.O. PROCEDURE:? XR CHEST 1V ? INDICATIONS:? chest pain ? TECHNIQUE:? One view of the chest was acquired.? ? COMPARISON:? [facility], CR, XR CHEST 1V, 06/15/2022, 9:05. ? FINDINGS:? ? Surgical changes and devices:? None.? ? Lungs and pleura:? Lungs are clear.? No pleural effusions or pneumothorax.? ? Mediastinum:? Mediastinal contours appear normal.? Heart size is normal.? ? Bones and chest wall:? No suspicious bony lesions.? Overlying soft tissues appear unremarkable.? ? IMPRESSION:? No acute process. ? ? Dictated by: Albino Mendoza M.D. on 08/06/2022 at 8:51 ? ? Approved by: Albino Mendoza M.D. on 08/06/2022 at 8:52?? ECG Data Attestation: I personally reviewed and interpreted this ECG as follows: Prior ECG tracings: available for review Interpretation: Sinus rhythm rate 80 9p are 140 QRS of 102 and QTC 442. Patient has nonspecific change. Patient has prior from 06/15/2022 which appears similar EKG 2 shows sinus rhythm rate of 60 6p are 146 QRS of 102 and QTC 392. No acute ST changes appreciated patient here EKG appears similar to prior MDM Narrative Medical decision making narrative: This is a 26-year-old male with intermittent elevated heart rate he states typically 100 occasional 140s, often at night when he can not sleep. This morning at about 5:00 a.m. in the morning he had some substernal chest pain which is still present without any radiation. Patient has family history with his dad has known cardiac disease and AFib, patient has a prior history of alcoh ol abuse but states he has been sober for 3 months. Initial labs are reassuring, 2nd troponin EKG were initiated and D-dimer added on as well as COVID. D-dimer is negative, 2nd troponin is negative as well with no acute EKG changes patient is COVID negative today. Discussed with patient feels mark ropriate to follow-up he does not have a PCP so given referral to the call center, and Cardiology referral as this may be faster for Holter, possibly echo or further workup such as stress testing if felt appropriate. Patient also given resources with [facility] for substance abuse and mental health counseling and resources. Discharge Plan Departure Patient Disposition: Home Clinical Impression: Palpitations Activity Restrictions/Additional Instructions: Follow-up for recheck you may benefit from a Holter monitor or ZIO patch. You can follow up with primary care and call [phone] to establish with primary care or you may reach out to Cardiology to set up follow-up for further workup as well. Contact information is included below. Please call this week to set up follow-up. Please return for new or worsening symptoms, passing out, persistent chest pain or shortness of breath, vomiting, new swelling of extremities or other new or concerning symptoms. Prescriptions: No Action chlordiazepoxide HCl 25 mg capsule 25 mg PO BID Qty: 6 0RF Rx Instructions: Take 1 tablet every 8 hours for 3 doses then to 1 tablet every 12 hours for 2 doses then 1 tablet acamprosate 333 mg tablet,delayed release (DR/EC) 666 mg PO Q8H Qty: 30 0RF Rx Instructions: Start after 5 days of alcohol abstinence Referrals: Miscellaneous,MD Rosita [Primary Care Provider] - Ashley Hall MD [Physician] - Visit Report Forms: Patient Portal/API
[2022-08-06 10:06] LABS: D Dimer < 215 ng/ml (<500)
[2022-08-06 10:39] LABS: COVID19 -Nasal RAPID Negative (Negative)
[2022-08-06 11:11] LABS: Troponin I < 0.012 ng/mL (0.01-0.034)
== END 2022-08-06 11:42 | disposition home or self-care (01) ==
PROVIDERS: Emergency Provider Emergency Medicine
DX: R00.2 Palpitations (principal); R07.9 Chest pain, unspecified; Z20.822 Contact with and (suspected) exposure to COVID-19
CPT/HCPCS: 36415; 71045; 80053; 82550; 83690; 83735; 84484; 85025; 85379; 87635; 93005; 99284; C9803